=== PATIENT | female | born 1970 | race African-American/Black ===

== ENCOUNTER 2017-10-12 08:46 | Observation (INO) | payer OTHER ==
[~2017-10-12] VITALS: Ht 165.1 cm; Wt 81.6 kg
--- NOTE | ~2017-10-12 | CN ---
PATIENT NAME:ALESSANDRO KASPER MEDICAL RECORD: [id number] : 66 LOCATION:[facility].E10- ADMIT DATE: 10/12/17 ACCOUNT: [id number] CONSULTING PHYSICIAN: JEFFERY DENNIS MD REFERRING PHYSICIAN: JOE LATIF MD DATE OF CONSULTATION: 10/12/2017 Cardiology Consultation ADMITTING DIAGNOSES: 1. Chest pain compatible with angina. 2. Smoking history. HISTORY OF PRESENT ILLNESS: Mrs. Kasper presents with 2 days of chest pain, worsening. It is a pressure-like sensation in the middle of her chest, it worsened today. She could not perform her duties at work. It has been increasing over the past 2 days. She does not have a previous cardiac history. Her EKG is abnormal with a right bundle-branch block. PHYSICAL EXAMINATION: GENERAL APPEARANCE: Well-nourished, well-developed, appears stated age. Level of distress, comfortable. PSYCHIATRIC: Mental status, alert, normal affect. Orientation, oriented to time, place and person. EYES: Lids and conjunctiva, noninjected. No discharge, no pallor. ENT: Lips, teeth, gums, normal dentition. Oropharynx, no cyanosis, no pallor. NECK: Carotid arteries, bilateral normal upstroke, no bruits, no thrills. JUGULAR VEINS: No jugular venous pressure or distention. CERVICAL LYMPH NODES: Nontender, nonenlarged. THYROID: Not enlarged. Nontender. No nodules. LUNGS: Respiratory effort, unlabored. CHEST: Normal curvature. No thoracic deformity. No chest wall tenderness. Percussion, resonant. Auscultation, clear. No wheezes, no rales, no rhonchi. CARDIOVASCULAR: Precordial exam, nondisplaced. No heaves or pericardial thrills. Rate and rhythm, regular. Heart sounds, normal S1, normal S2. No S3, no gallop, no rub. Systolic murmur, not heard. Diastolic murmur, not heard. EXTREMITIES: No cyanosis, no edema. Peripheral pulses, full and equal in all extremities, except as noted. No bruits appreciated. ABDOMEN: Soft, nondistended. Normal aorta. No bruit. Nontender. No masses. Liver, nontender, no hepatomegaly. Spleen, nontender, no splenomegaly. MUSCULOSKELETAL: No joint tenderness. No joint swelling. No erythema. NEUROLOGICAL: Normal gait, normal strength, normal tone. SKIN: Warm and dry. OVERALL IMPRESSION: Chest pain in an escalating fashion. We will proceed with coronary angiography. Further care depends upon the findings of the angiography. TRANSINT:[id number] Voice Confirmation ID: [id number] DOCUMENT ID: [id number] CONSULT REPORT [id number] ALESSANDRO KASPER, JEFFERY PALENCIA at 1630 CC: [id number] DICTATION DATE: 10/12/17 1220 ENGINEERING TEAM SUPERVISOR: 10/12/17 1240 DIS IN 10/12/17 [facility] [address] [id number]
--- NOTE | ~2017-10-12 | OP ---
PATIENT NAME: ALESSANDRO KASPER MEDICAL RECORD: [id number] :66 [facility] ADMISSION DATE:10/12/17 SURGEON: JEFFERY DENNIS MD DATE OF OPERATION: 10/12/2017 PROCEDURES: 1. Left heart catheterization. 2. Selective coronary angiography. 3. Left ventriculogram. INDICATION: Chest pain compatible with angina and shortness of breath. PROCEDURE IN DETAIL: After informed consent was obtained and after detailed explanation of risks, benefits as well as alternative therapies, the patient elected to proceed with angiogram and heart catheterization. The right radial area is prepped and draped in normal sterile fashion. Right radial artery was cannulated via modified Seldinger technique with placement of 5-Nigerien sheath. All catheters exchanged through this sheath. FINDINGS: Left ventriculogram performed in standard 30-degree KAPADIA view reveals good cardiac wall motion throughout all segments. Overall ejection fraction is estimated at 60%. SELECTIVE CORONARY ANGIOGRAPHY: Left main, left anterior descending, left circumflex and right coronary artery are all smooth-walled vessels with no angiographic evidence of coronary artery disease. OVERALL IMPRESSION: 1. No angiographic evidence of coronary artery disease. 2. Normal left heart pressures. 3. Normal left ventricular systolic function. Chest pain and shortness of breath is noncardiac in etiology. No further cardiac workup needs to be ascertained. TRANSINT:[id number] Voice Confirmation ID: [id number] DOCUMENT ID: [id number] JEFFERY DENNIS MD at 1630 CC: [id number] DICTATION DATE: 10/12/17 1615 COMPUTER NETWORK SUPPORT SPECIALIST: 10/12/17 1654 DIS IN 10/12/17 [address] [place] [address]
--- NOTE | ~2017-10-12 | HEMODYNAMI ---
PATIENT:ALESSANDRO KASPER MEDICAL RECORD: [id number] : 66 [facility] AD[facility] DATE: 10/12/17 Generatedon:10/12/201716:13 Patient name: ALESSANDRO KASPER Patient #: [id number] : 1970 Date of study: 10/12/2017 Page: Of Hemodynamic Procedure Report Patient Data Patient Demographics Procedure consent was obtained First Name: ALESSANDRO Gender: Female Last Name: MAJO : 1970 Patient #: [id number] Age: 47 year(s) Race: Black SSN: [id number] Additional ID: [id number] Contact details Address: [address] [place] [address] State: [place] City: [facility] Zip code: [address] Past Medical History Allergies: No known allergies Admission Admission Data Admission Date: 10/12/2017 Admission Time: 10:47 Room #: .E10 Height (in.): 64.96 BSA: 1.88 (m2) Height (cm.): 165 BMI: 29.75 (kg/m2) Weight (lbs.): 178.58 Weight (kg.): 81 Procedure Procedure Types Cath Procedure Diagnostic Procedure [facility] w/Coronaries Procedure Description Procedure Date Procedure Date: 10/12/2017 Procedure Start Time: 16:04 Procedure End Time: 16:11 Procedure Staff Name Function Polo Hough MD Performing Physician Elsa Campbell RT Monitor Skylar Dawson RN Nurse Connor Garcias RN Nurse Genesis Rivera RT Scrub Procedure Data Cath Procedure Fluoroscopy Diagnostic fluoroscopy Total fluoroscopy Time: 1.1 time: 1.1 min min Diagnostic fluoroscopy Total fluoroscopy dose: dose: 54.23 mGy 54.23 mGy Contrast Material Contrast Material Type Amount (ml) Isovue 300 30 Entry Location Entry Primary Successful Side Size Upsize Upsize Entry Closure Pineda ccessful Closure Location (Fr) 1 (Fr) 2 (Fr) Remarks Device Remarks Radial Right 6 Fr Mechanical artery Short Compression Estimated blood loss: 5 ml Procedure Complications No complications Procedure Medications Medication Administration Route Dosage Oxygen NC 2 l/min Lidocaine 2% added to field 20 Heparin Flush Bag added to field 2 bags (1000units/500ml NS) 0.9% NaCl I.V. 100 ml/hr Radial Cocktail I.A. 1 syringe (Verapomil 2mg/Nitro 400mcg/Heparin 1500units) Versed I.V. 1 mg Fentanyl I.V. 50 mcg Versed I.V. 1 mg Fentanyl I.V. 50 mcg Hemodynamics Rest BSA: 1.88 (m2) O2 Consumption: Estimated: 176.74 (ml/min) O2 Consumption indexed : Estimated:94.01 (ml/min/m) Heart Rate: 59 (bpm) Pressure Samples Time Site Value (mmHg) Purpose Heart Use Rate(bpm) 16:06 LV 119/81,28 Snapshot 97 Snapshots Pre Cath Intra NCS Post Cath Vital Signs Time Heart Resp SPO2 etCO2 NIBP (mmHg) Rhythm Pain Sedation Rate (ipm) (%) (mmHg) Status Level (bpm) 15:47:28 63 22 99 39 153/87(107) NSR 0 (11) 10(A) , No pain 15:51:38 62 21 99 39 134/105(122) NSR 0 (11) 10(A) , No pain 15:55:44 75 17 94 42 139/83(104) NSR 0 (11) 10(A) , No pain 15:59:54 70 16 96 44.2 134/81(105) NSR 0 (11) 10(A) , No pain 16:04:00 68 15 97 38.3 134/81(95) NSR 0 (11) 9(A) , No pain 16:08:07 76 16 95 37.5 143/80(106) NSR 0 (11) 10(A) , No pain Medications Time Medication Route Dose Verified Delivered Reason Notes Effectiveness by by 15:54:53 Oxygen NC 2 l/min Polo Cheng used for Gianluca Dawson floor nurse 15:55:00 Lidocaine 2% added 20ml Polo Cuellar for local to vial Gianluca Hough MD anesthetic field 15:55:09 Heparin Flush added 2 bags Polo Cuellar used for Bag to Gianluca Hough MD procedure (1000units/500ml field NS) 15:55:20 0.9% NaCl I.V. 100 Polo Cheng Per ml/hr Gianluca Dawson RN physician 16:03:07 Versed I.V. 1 mg Polo Cheng for sedation Gianluca Dawson RN 16:03:13 Fentanyl I.V. 50 mcg Polo Cheng for sedation Gianluca Dawson RN 16:06:15 Radial Cocktail I.A. 1 Polo Cuellar for (Verapomil syringe Gianluca Hough MD vasodilation 2mg/Nitro 400mcg/Heparin 1500units) 16:06:32 Versed I.V. 1 mg Polo Cheng for sedation Gianluca Dawson RN 16:06:36 Fentanyl I.V. 50 mcg Polo Cheng for sedation Gianluca Dawson RN Procedure Log Time Note 15:16:48 Patient Height : 64.96 inches 15:16:52 Patient Weight : 178.58 lbs 15:17:26 Diagnostic Cath status Elective 15:30:05 Genesis EVANS(R) sent for patient. Start room use. 15:46:12 Time tracking: Regular hours (M-F 7:00 - 5:00) 15:46:16 Plan of Care:Hemodynamics will remain stable., Cardiac rhythm will remain stable., Comfort level will be maintained., Respiratory function will remain adequate., Patient/ family verbilizes understanding of procedure., Procedure tolerated without complication., Recovers from procedure without complications.. 15:46:21 Patient received from ED to CCL 3 Alert and oriented. Tansferred to table in Supine position. 15:46:22 Warm blankets applied, and juli hugger turned on for patient comfort. 15:46:22 Correct patient and procedure confirmed by team. 15:46:23 Signed procedure consent form obtained from patient. 15:46:24 ECG and BP/O2 sat monitors applied to patient. 15:46:27 Vital chart was started 15:46:31 Rhythm: sinus rhythm 15:46:32 Full Disclosure recording started 15:46:38 H&P Date Dictated: 10/12/2017 ER History on chart.. 15:46:41 Pre-procedure instructions explained to patient. 15:46:41 Pre-op teaching completed and patient verbalized understanding. 15:46:43 Family in waiting room. 15:46:44 Patient NPO since Midnight. 15:47:01 Patient allergic to No known allergies 15:47:17 Is the patient allergic to Iodine/contrast media? No. 15:47:23 Is patient on blood thinner?No 15:47:33 Baseline sample Acquired. 15:48:37 Patient diabetic? No. 15:48:46 Previous problem with sedation/anesthesia? No ? 15:48:48 Snore? Yes 15:48:49 Sleep apnea? Yes 15:48:49 Deviated septum? No 15:48:50 Opens mouth fully? Yes 15:48:51 Sticks out tongue? Yes 15:48:57 Airway obstruction? Yes emphysema 15:49:00 Dentures? No ? 15:49:03 Pre procedure: right dorsailis pedis pulse 1+ Palpable, but thready & weak; easily obliterated 15:49:06 Pre procedure: left dorsailis pedis pulse 1+ Palpable, but thready & weak; easily obliterated 15:49:09 Patient pain scale 0/10 ?. 15:49:17 IV patent on arrival in left forearm with 0.9% NaCl at [facility]. 15:49:19 Lab results completed and on chart. 15:49:45 Right Radial & Right Groin area was prepped with chlora-prep and draped in sterile fashion 15:49:46 Alarms reviewed by R. N. 15:49:47 Sharps counted by scrub and verified by R.N. 15:53:47 Zero performed for pressure channel P1 15:54:53 Oxygen 2 l/min NC was administered by Skylar Dawson RN; used for procedure; 15:55:00 Lidocaine 2% 20ml vial added to field was administered by Polo Hough MD; for local anesthetic; 15:55:09 Heparin Flush Bag (1000units/500ml NS) 2 bags added to field was administered by Polo Hough MD; used for procedure; 15:55:20 0.9% NaCl 100 ml/hr I.V. was administered by Skylar Dawson RN; Per physician; 15:57:50 Physician paged 16:02:19 Physician arrived 16:02:20 --------ALL STOP TIME OUT------ 16:02:20 Final Timeout: patient, procedure, and site verified with staff and physician. All members of the team are in agreement. 16:02:31 Right Radial & Right Groin site verified by team. 16:02:34 Physical assessment completed. ASA score P 2 - A patient with mild systemic disease as per Polo Hough MD. 16:02:38 Sedation plan: IV Moderate Sedation Medication:Versed, Fentanyl 16:03:07 Versed 1 mg I.V. was administered by Skylar Dawson RN; for sedation; 16:03:13 Fentanyl 50 mcg I.V. was administered by Skylar Dawson RN; for sedation; 16:04:45 Use device set Radial Dx or PCI 16:04:46 ACIST Syringe (53544) opened to sterile field. 16:04:46 Medline Cath Pack ([id number]) opened to sterile field. 16:04:47 Bag Decanter (2002S) opened to sterile field. 16:04:47 DIAGNOSTIC WIRE .035 260cm J wire (099032) opened to sterile field. 16:04:47 ACIST Hand Control (14284) opened to sterile field. 16:04:48 ACIST Manifold (31219) opened to sterile field. 16:04:48 Tegaderm 4 x 4 (1626W) opened to sterile field. 16:04:50 SHEATH 6Fr Prelude Radial ([id number]) opened to sterile field. 16:04:54 Procedure started. 16:04:59 Local anesthetic to right radial artery with Lidocaine 2% by Polo Hough MD.INITIAL ACCESS ONLY 16:05:13 A 6 Fr Short sheath was inserted into the Right Radial artery 16:06:15 Radial Cocktail (Verapomil 2mg/Nitro 400mcg/Heparin 1500units) 1 syringe I.A. was administered by Polo Hough MD; for vasodilation; 16:06:32 Versed 1 mg I.V. was administered by Skylar Dawson RN; for sedation; 16:06:36 Fentanyl 50 mcg I.V. was administered by Skylar Dawson RN; for sedation; 16:06:54 LV hemodynamics recorded. 16:06:56 LV gram done using KAPADIA 16:06:58 Injector settings: Ml/sec: 5, Volume: 15, 16:07:04 EF : 60 % 16:07:46 LCA angiography performed. 16:07:49 Injector settings: Ml/sec: 3, Volume: 6+, 16:08:53 RCA angiography performed. 16:08:56 Injector settings: Ml/sec: 3, Volume: 6, 16:09:00 Catheter removed. 16:09:20 TR BAND Standard ([id number]) opened to sterile field. 16:09:34 Sheath removed intact; hemostasis achieved with Mechanical Compression to the Right Radial artery. 16:09:36 Procedure ended.(Physican Out) 16:10:19 Fluoroscopy time 01.10 minutes. 16:10:25 Fluoroscopy dose: 54.23 mGy 16:10:25 Flurop Dose total: 54.23 16:10:30 Contrast amount:Isovue 300 30ml. 16:10:32 Sharps counted by scrub and verified by R.N. 16:10:36 TR band inflated with 12cc of air. 16:10:37 Insertion/operative site no bleeding no hematoma. 16:10:41 Post right radial artery:stable 16:10:43 Post Procedure Pulses reassessed and unchanged 16:10:45 Post procedure rhythm: unchanged. 16:10:48 Estimated blood loss: 5 ml 16:10:49 Post procedure instruction explained to patient.Patient verbalizes understanding. 16:10:50 Patient needs reinforcement of post procedure teaching. 16:10:57 Procedure and supply charges have been captured, reviewed, submitted and are correct. 16:11:01 Procedure Complication : No complications 16:11:15 Vital chart was stopped 16:11:16 See physician's report for complete and final results. 16:11:20 Report given to ED. 16:11:23 Patient transfered to ED with Stretcher. 16:11:26 Procedure ended. 16:11:26 Full Disclosure recording stopped 16:11:30 End room use (Document Last) Device Usage Item Name Manufacture Quantity Catalog Number Hospital Part Current M inimal Lot# / Charge Number Stock Stock Serial# Code ACIST Syringe Acist 1 [id number] 571439 412139 [id number] 2 0 (02577) [employer] Medline Cath Cardinal 1 [id number] 808277 38958 134331 5 [employer] ([id number]) Bag Decanter Microtek 1 447648 06189 846370 5 () [employer] Inc. DIAGNOSTIC WIRE St Beto 1 [id number] 744585 924500 915786 3 0 .035 260cm J wire (138945) ACIST Hand Acist 1 71686 545419 962677 003763 5 Control (29865) [employer] ACIST Manifold Acist 1 26287 020368 273056 708573 5 (21501) [employer] Tegaderm 4 x 4 3M 1 1626W 899091 918209 903079 5 (1626W) SHEATH 6Fr Merit 1 [id number] 819615 728976 676964 5 Prelude Radial Medical ([id number]) TR BAND Terumo 1 [id number] 283266 018725 979074 4 0 Standard ([id number]) Signature Audit [place] Stage Time Signature Unsigned Intra-Procedure 10/12/2017 Elsa Campbell 4:13:18 PM RT(R) Signatures Monitor : Elsa Campbell RT Signature : Date : Time : [facility] [address] [place] [place] [address]
[2017-10-12 09:08] LABS: BASOPHILS 0.3 % (0-2); EOSINOPHILS 3.2 % (0-7); HEMATOCRIT 37.3 % (36.0-48.0); HEMOGLOBIN 12.9 g/dL (12-16); IMMATURE GRANULOCYTES 0.1 % (0-5); LYMPHOCYTES 37.2 % (15-50); MCH 32.3 pg (26.0-34.0); MCHC 34.6 g/dL (31.0-37.0); MCV 93.3 fL (80.0-100.0); MEAN PLATELET VOLUME 9.4 fL (7.4-10.4); MONOCYTES 8.2 % (2-11); PLATELET COUNT 227 10x3/uL (130-400); RDW 12.5 % (11.5-14.5); WBC 7.1 10x3/uL (4.8-10.8)
[2017-10-12 09:24] LABS: ALBUMIN 3.6 g/dL (3.4-5.0); ALKALINE PHOSPHATASE 64 U/L (46-116); ALT (SGPT) 19 U/L (10-68); CALC OSMOLALITY 283 mosm/kg (275-300); CALCIUM 9.1 mg/dL (8.5-10.1); CARBON DIOXIDE 27.8 mmol/L (21.0-32.0); CHLORIDE - SERUM 106 mmol/L (98-107); CREATININE - SERUM 0.9 mg/dL (0.6-1.3); GLUCOSE 95 mg/dL (74-106); POTASSIUM - SERUM 3.9 mmol/L (3.5-5.1); PROTEIN - SERUM 6.9 g/dL (6.4-8.2); SODIUM 143 mmol/L (136-145); UREA NITROGEN 11 mg/dL (7-18); eGFR NON AFRICAN AMERICAN 70 mL/min (90-120)
[2017-10-12 09:33] LABS: AMYLASE - SERUM 36 U/L (25-115); CHOLESTEROL, TOTAL 183 mg/dL (0-200); CKMB 1.1 U/L (0.0-3.6); CREATINE KINASE 153 UL (21-215); HDL CHOLESTEROL 37 mg/dL (32-96); LDL CHOLESTEROL 125 mg/dL (0-100); LDL-HDL RATIO 3.4 ratio (1.5-3.5); LIPASE 154 U/L (73-393); TRIGLYCERIDE 105 mg/dL (30-200); TROPONIN-I < 0.017 ng/mL (0.000-0.060)
[2017-10-12 12:43] LABS: CREATINE KINASE 166 UL (21-215); TROPONIN-I < 0.017 ng/mL (0.000-0.060)
== END 2017-10-12 18:55 | disposition home or self-care (01) ==
LOC: D.ER 08:46 → D.EDHOLD 10:47 → OBSVTIME 11:00 → D.EDHOLD 18:55
PROVIDERS: Family Medicine
DX: R07.89 Other chest pain (principal); E78.5 Hyperlipidemia, unspecified; I45.10 Unspecified right bundle-branch block; Z72.0 Tobacco use